=== PATIENT | male | born 1945 | race Caucasian/White ===

== ENCOUNTER 2023-02-24 01:26 | Inpatient (IN) | payer MEDICARE ==
[2023-02-24 01:55] LABS: #Basophils 0.1 10x3/uL (0.0-0.2); #Eosinphils 0.2 10x3/uL (0.0-0.5); #Monocytes 0.7 10x3/uL (0.0-1.1); #Neutrophils 6.4 10x3/uL (1.5-8.4); %Basophils 1.3 % (0.0-2.0); %Eosinophils 2.5 % (0.0-6.0); %Lymphocytes 22.8 % (18.0-47.0); %Monocytes 6.9 % (0.0-10.0); Hemoglobin 14.6 g/dL (13.5-17.5); Mean Corpuscular HGB CONC 32.2 g/dL (32.0-36.0); Mean Platelet Volume 10.3 fl (7.4-10.4); Platelet Count 207 10x3/uL (150-450); RBC Distribution Width 14.1 % (11.5-14.5); Red Blood Cell (RBC) Count 4.87 10x6/uL (4.32-5.72); White Blood Cell (WBC) Count 9.8 10x3/uL (3.5-10.5)
[2023-02-24] MEDS ORDERED: Ipratropium/Albuterol 3 ML NEB ONE (02:02)
[2023-02-24] MEDS ORDERED: Magnesium 2 GM/50 ML BAG (IN WATER) ONE (02:02)
[2023-02-24] MEDS ORDERED: methylPREDNISolone Sod Succ/PF 125 MG/2 ML VIAL ONE (02:02)
[2023-02-24] MEDS ORDERED: Aspirin Chewable 81 MG TAB ONE (02:03)
[2023-02-24 02:09] LABS: ALT (SGPT) 18 U/L (8-55); AST (SGOT) 18 U/L (5-34); Albumin 3.9 g/dL (3.4-4.8); Alkaline Phosphatase 61 U/L (40-110); Anion Gap 16 mmol/L (10-20); BUN (Urea Nitrogen) 11 mg/dL (8.4-25.7); Bilirubin, Total 0.3 mg/dL (0.2-1.2); Calc. Creatinine Clearance 0 mL/min (70-130); Calcium 8.9 mg/dL (7.8-10.44); Carbon Dioxide 23 mmol/L (23-31); Chloride 104 mmol/L (98-107); Estimated GFR 67; Globulin 3.1 g/dL (2.4-3.5); Glucose 151 mg/dL (83-110); Lipase 21 U/L (8-78); Potassium 3.8 mmol/L (3.5-5.1); Sodium 139 mmol/L (136-145)
[2023-02-24 02:32] LABS: CKMB 4.9 ng/mL (0-6.6)
[2023-02-24] MEDS ORDERED: Heparin 5,000 UNITS/ML VIAL ONE (03:17)
[2023-02-24] MEDS ORDERED: Heparin 25,000 units/D5W 0 ML ONE (03:18)
[2023-02-24 03:55] LABS: PTT 27.5 sec (22.0-33.0); Prothrombin Time 10.7 sec (9.5-12.1)
[2023-02-24] MEDS ORDERED: Calcium Carbonate 500 MG ChewTAB PO PRN (04:02)
[2023-02-24] MEDS ORDERED: Senokot S 8.6-50 MG TAB PO PRN (04:02)
[2023-02-24] MEDS ORDERED: Acetaminophen 325 MG TAB PO PRN (04:02)
[2023-02-24] MEDS ORDERED: Guaifenesin DM 100-10/5 ML UDCUP PO PRN (04:02)
[2023-02-24] MEDS ORDERED: Ondansetron PF 4 MG/2 ML Vial IVP PRN (04:02)
[2023-02-24] MEDS ORDERED: HYDROcodone/Acetaminophen 5/325 mg Tablet PO PRN (04:02)
[2023-02-24] MEDS ORDERED: Nitroglycerin 0.4 MG TAB (25 Tab Bottle) SL PRN (04:06)
[2023-02-24 05:03] VITALS: BMI 26.4
[2023-02-24] MEDS ORDERED: Furosemide 20 MG/2 ML VIAL SLOW IVP SCH ×2 (05:15→09:00)
[2023-02-24 08:14] LABS: CKMB 10.7 ng/mL (0-6.6)
[2023-02-24] MEDS: Aspirin 81 mg Enteric Coated Tablet PO SCH (09:07)
[2023-02-24] MEDS: Metoprolol Tartrate 25 MG TAB PO SCH ×2 (09:07→20:05)
[2023-02-24] MEDS: Famotidine/PF 20 mg/2ml Vial SLOW IVP SCH ×2 (09:07→20:05)
[2023-02-24] MEDS ORDERED: Iopamidol 370 76% 100 ML VIAL ONE (14:08)
[2023-02-24] MEDS ORDERED: Communication Order-Pharmacy FS SCH (18:30)
[2023-02-24] MEDS ORDERED: EPINEPHRINE 1 MG/10 ML-NACL IV ONE (19:22)
[2023-02-24] MEDS ORDERED: Atorvastatin Calcium 20 MG TAB PO SCH (21:00)
[2023-02-25] MEDS: Ipratropium/Albuterol 3 ML NEB NEB PRN ×2 (01:08→07:30)
[2023-02-25 04:38] VITALS: TEMP 98.2
[2023-02-25 05:09] LABS: #Basophils 0.1 10x3/uL (0.0-0.2); #Eosinphils 0.1 10x3/uL (0.0-0.5); #Monocytes 1.2 10x3/uL (0.0-1.1); #Neutrophils 13.2 10x3/uL (1.5-8.4); %Basophils 0.4 % (0.0-2.0); %Eosinophils 0.5 % (0.0-6.0); %Lymphocytes 16.3 % (18.0-47.0); %Monocytes 6.7 % (0.0-10.0); %Neutrophils 75.6 % (40.0-75.0); Hemoglobin 12.5 g/dL (13.5-17.5); Mean Corpuscular Hemoglobin 30.6 pg (27.0-33.0); Mean Corpuscular Volume 92.7 fl (81.2-95.1); Mean Platelet Volume 10.9 fl (7.4-10.4); Platelet Count 201 10x3/uL (150-450); RBC Distribution Width 14.1 % (11.5-14.5); Red Blood Cell (RBC) Count 4.09 10x6/uL (4.32-5.72); White Blood Cell (WBC) Count 17.5 10x3/uL (3.5-10.5)
[2023-02-25 05:20] LABS: Anion Gap 14 mmol/L (10-20); BUN (Urea Nitrogen) 17 mg/dL (8.4-25.7); Calc. Creatinine Clearance 75 mL/min (70-130); Calcium 8.7 mg/dL (7.8-10.44); Carbon Dioxide 25 mmol/L (23-31); Cardiac Risk 8.6 (Less than 4.5); Chloride 103 mmol/L (98-107); Cholesterol 309 mg/dl (< 200 Desired); Estimated GFR 86; Glucose 120 mg/dL (83-110); HDL Cholesterol 36 mg/dL (>60 Neg Risk); LDL Cholesterol, Calculated 233 mg/dL; Sodium 138 mmol/L (136-145); Triglycerides 201 mg/dL (Less than 150)
[2023-02-25] MEDS: Famotidine/PF 20 mg/2ml Vial SLOW IVP SCH (06:00)
[2023-02-25] MEDS: Metoprolol Tartrate 25 MG TAB PO SCH (06:00)
[2023-02-25] MEDS: Aspirin 81 mg Enteric Coated Tablet PO SCH (06:00)
[2023-02-25] MEDS ORDERED: Nitroglycerin 50 MG/250 ML BOT 250 ML ONE (06:38)
[2023-02-25] MEDS ORDERED: Lidocaine 1% (PF) 30 ML VIAL ONE (06:38)
[2023-02-25] MEDS ORDERED: Adenosine 6 MG/2 ML VIAL ONE (06:39)
[2023-02-25] MEDS ORDERED: Heparin 10,000 UNITS/ 10 ML VIAL ONE ×2 (06:39→09:53)
[2023-02-25] MEDS ORDERED: fentaNYL 50 mcg/mL 1 mL Vial ONE (06:40)
[2023-02-25] MEDS ORDERED: Midazolam HCl 2 mg/2 ml Vial ONE (06:40)
[2023-02-25 07:04] VITALS: BP 111/54
[2023-02-25] MEDS ORDERED: TICAGRELOR 90 MG TABLET ONE (09:35)
[2023-02-25] MEDS ORDERED: Phenylephrine 10 MG/ML VIAL ONE (09:45)
[2023-02-25] MEDS ORDERED: Atropine Sulfate 0.4 mg/1 ml Vial ONE (09:47)
[2023-02-25] MEDS ORDERED: Ondansetron PF 4 MG/2 ML Vial ONE (09:49)
[2023-02-25] MEDS ORDERED: Iopamidol 300 61% 100 ML VIAL FS ONE (10:00)
[2023-02-25] MEDS ORDERED: NOREPINEPHRINE 8 MG/250 ML-D5W 250 ML ONE (10:05)
[2023-02-25] MEDS ORDERED: Phenylephrine 40 MG/NS 250 ML 250 ML ONE (10:05)
[2023-02-25 15:04] LABS: Hemoglobin A1c 5.2 % (4.0-6.0)
[2023-02-28 17:38] LABS: ALV-art Gradient 201.975 mmHg (0-20); Actual Bicarbonate (HCO3a) 32.9 mEq/L (22-28); Base Excess (BEa) 8.1 mEq/L (-2.0 to +3.0); CO2 Tension 46.1 mmHg (35.0-45.0); Calcium, Ionized (arterial) 0.93 mmol/L (1.12-1.30); Hematocrit-ABG 40 % (42.0-52.0); Hemoglobin (Hb) 13.7 g/dL (14.0-18.0); O2 Tension (PaO2), arterial 453.4 mmHg (> 70.0); Potassium - ABG Lab 4.62 mmol/L (3.70-5.30); Puncture Site Other Site; pH, Arterial 7.471 (7.35-7.45)
== END 2023-02-25 11:39 | disposition expired | DRG 250 ==
LOC: CSHERS 01:26 → CSHTELE 04:39
PROVIDERS: ADMIT Student in an Organized Health Care Education/Training Program; ATTEND Internal Medicine
PROC: 02703ZZ Dilation of Coronary Artery, One Artery, Percutaneous Approach (ICD-10-PCS; principal; 2023-02-25)
PROC: 4A023N7 Measurement of Cardiac Sampling and Pressure, Left Heart, Percutaneous Approach (ICD-10-PCS; 2023-02-25)
PROC: B2111ZZ Fluoroscopy of Multiple Coronary Arteries using Low Osmolar Contrast (ICD-10-PCS; 2023-02-25)
PROC: B2151ZZ Fluoroscopy of Left Heart using Low Osmolar Contrast (ICD-10-PCS; 2023-02-25)
PROC: B241ZZ3 Ultrasonography of Multiple Coronary Arteries, Intravascular (ICD-10-PCS; 2023-02-25)
PROC: 5A12012 Performance of Cardiac Output, Single, Manual (ICD-10-PCS; 2023-02-25)
PROC: 5A1213Z Performance of Cardiac Pacing, Intermittent (ICD-10-PCS; 2023-02-25)
PROC: 4A033R1 Measurement of Arterial Saturation, Peripheral, Percutaneous Approach (ICD-10-PCS; 2023-02-25)
DX: I21.4 Non-ST elevation (NSTEMI) myocardial infarction (principal); I50.23 Acute on chronic systolic (congestive) heart failure; J96.01 Acute respiratory failure with hypoxia; I13.0 Hypertensive heart and chronic kidney disease with heart failure and stage 1 through stage 4 chronic kidney disease, or unspecified chronic kidney disease; I44.2 Atrioventricular block, complete; E78.5 Hyperlipidemia, unspecified; F17.210 Nicotine dependence, cigarettes, uncomplicated; F12.10 Cannabis abuse, uncomplicated; N18.2 Chronic kidney disease, stage 2 (mild); R73.9 Hyperglycemia, unspecified; J44.9 Chronic obstructive pulmonary disease, unspecified; I44.7 Left bundle-branch block, unspecified; I95.9 Hypotension, unspecified; Z71.6 Tobacco abuse counseling; Z71.51 Drug abuse counseling and surveillance of drug abuser
CPT/HCPCS: 71045; 71275; 80048; 80053; 80061; 82553; 82805; 83036; 83690; 83880; 84484; 85025; 85347; 85379; 85610; 85730; 92920; 92978; 92979; 93005; 93306; 93458; 94640; 94760; 96365; 96366; 96375; 99152; 99153; C1753; C1760; C1769; C1874; C1887; C1888; C1894; J0153; J0461; J1644; J1650; J1940; J2001; J2250; J2370; J2405; J2930; J3010; J3475; J7620; Q9967; S0028